=== PATIENT | male | born 2000 | race Hispanic/Latino ===

== ENCOUNTER 2024-12-04 16:58 | Emergency (ER) | payer MEDICAID ==
[~2024-12-04] VITALS: Ht 180.3 cm; Wt 67.6 kg
--- NOTE | 2024-12-04 17:12 | ERN ---
ED Note History of Present Illness Stated Complaint: ABD PAIN Chief Complaint: Abdominal Pain Time Seen by MD: 16:59 Dictation: PATIENT IS A 24-YEAR-OLD MALE HERE WITH COMPLAINTS OF EPIGASTRIC PAIN WITH BLOATING SINCE JUNE 2024. HE HAS HAD NO FEVER NO CHILLS NO NAUSEA VOMITING. STATES HE DOES NOT HAVE A PRIMARY CARE DOCTOR. HE STATES HE DID GO TO [facility] AND THEY TOLD HIM THAT IT WAS NOTHING AND GAVE HIM SOMETHING FOR PAIN FOR HIS STOMACH. HE STATES TODAY IS HIS 2ND FOLLOW UP TO A DOCTOR FOR RELIEF OF THE PAIN. STATES HIS LAST INTAKE WAS YESTERDAY AND HE ATE SOME GROUND BEEF SAID IT DID NOT CHANGE THE PAIN. Allergies: Coded Allergies: No Known Drug Allergies (Unverified Allergy, Unknown, 12/04/24) Past Medical History RN Note Reviewed/Agreed w/PFSH: Yes Review of System Dictation CONSTITUTIONAL: NEGATIVE EXCEPT FOR HPI HEAD/FACE: NEGATIVE EXCEPT FOR HPI EENT: NEGATIVE EXCEPT FOR HPI RESPIRATORY: NEGATIVE EXCEPT FOR HPI GASTROINTESTINAL/ABDOMINAL: NEGATIVE EXCEPT FOR HPI EPIGASTRIC PAIN WITH BLOATING GENITOURINARY: NEGATIVE EXCEPT FOR HPI MUSCULOSKELETAL: NEGATIVE EXCEPT FOR HPI INTEGUMENTARY: NEGATIVE EXCEPT FOR HPI NEUROLOGICAL/PSYCH: NEGATIVE EXCEPT FOR HPI HEMATOLOGIC/LYMPHATIC: NEGATIVE EXCEPT FOR HPI ALL SYSTEMS NEGATIVE, EXCEPT NOTED ABOVE. 13 POINT REVIEW OF SYSTEMS ASSESSED AND ALL NEGATIVE EXCEPT FOR ABOVE. Initial Vital Sign VS Vital Signs Date Time Temp Pulse Resp B/P (MAP) Pulse Ox O2 Delivery O2 Flow Rate FiO2 12/04/24 17:08 98.8 90 18 127/88 98 Room Air 0 Physical Exam Dictation VITAL SIGNS REVIEWED GENERAL APPEARANCE: ALERT, ORIENTED X 3, NO ACUTE DISTRESS, WELL DEVELOPED, NOURISHED. HEAD AND FACE: NON-TRAUMATIC. EYES: PERRL, PINK CONJUNCTIVAS, EYELID NO TRAUMA, ANTERIOR CHAMBER WITH ARCUS SENILIS. EARS: PINNAS INTACT AND NO SIGNS OF TRAUMA OR ERYTHEMA EAR CANALS CLEAR AND NO DISCHARGE TM NO ERYTHEMA NOSE: NO DISCHARGE, NO BLEEDING. OROPHARYNX: MOUTH NORMAL, TONGUE PINK, PHARYNX CLEAR,NO ERYTHEMA, TONSILS NO EXUDATES, NO ABSCESSES NOTED, MUCOUS MEMBRANE MOIST NECK: SUPPLE, NON-TENDER, NO THYROMEGALY, NO MASSES, NO JVD, NO BRUITS BREAST:DEFERRED CHEST:NO TENDERNESS, NO CREPITUS, NO PARADOXICAL MOVEMENT, NO RETRACTIONS LUNGS:CLEAR, WELL-VENTILATED, SYMMETRIC, NO RALES, NO WHEEZING, NO RHONCHI, NO STRIDOR, GOOD BREATH SOUNDS BILATERALLY HEART: REGULAR RATE, REGULAR RHYTHM, NO MURMUR, NO GALLOPS VASCULAR: NO PERIPHERAL EDEMA, ABDOMEN: SOFT, POSITIVE BOWEL SOUNDS, NONDISTENDED, NO GUARDING, MILD EPIGASTRIC TENDERNESS WITH PALPATION, NO REBOUND TENDERNESS NEGATIVE HERNANDEZ'S SIGN. RECTAL: DEFERRED GENITAL: DEFERRED NEUROLOGICAL: NORMAL SPEECH, MOTOR FUNCTION INTACT, SENSORY FUNCTION INTACT MUSCULOSKELETAL: NECK NONTENDER, FULL RANGE OF MOTION, BACK NONTENDER, FULL RANGE OF MOTION, EXTREMITIES: NONTENDER, FULL RANGE OF MOTION SKIN: COLOR PINK, DRY, NO TURGOR, NO RASH, NO LACERATIONS, NO ABRASIONS, NO CONTUSIONS. LYMPHATIC: DEFERRED Results (Laboratory/Radiology) Laboratory/Radiology Laboratory Tests Test 12/04/24 17:21 White Blood Count 6.5 K/uL (4.8-10.8) Red Blood Count 4.94 MIL/uL (4.50-6.20) Hemoglobin 15.6 g/dL (14.0-18.0) Hematocrit 44.4 % (42-54) Mean Corpuscular Volume 89.9 fL (79-99) Mean Corpuscular Hemoglobin 31.6 pg (27.0-33.0) Mean Corpuscular Hemoglobin Concent 35.1 g/dL (32.0-36.0) Red Cell Distribution Width 12.0 % (11.0-15.5) Platelet Count 326 K/uL (130-400) Mean Platelet Volume 9.3 fL (7.5-10.5) Immature Granulocyte % (Auto) 0.2 % (0-1) Neutrophils (%) (Auto) 78.1 % (40.0-77.0) H Lymphocytes (%) (Auto) 15.8 % (21.0-51.0) L Monocytes (%) (Auto) 5.4 % (3.0-13.0) Eosinophils (%) (Auto) 0.2 % (0.0-8.0) Basophils (%) (Auto) 0.3 % (0.0-5.0) Neutrophils # (Auto) 5.1 K/uL (1.8-7.7) Lymphocytes # (Auto) 1.0 K/uL (1.0-4.8) Monocytes # (Auto) 0.4 K/uL (0.1-1.0) Eosinophils # (Auto) 0.01 K/uL (0.00-0.70) Basophils # (Auto) 0.02 K/uL (0.00-0.20) Absolute Immature Granulocyte (auto 0.01 K/uL (0-1) Nucleated Red Blood Cells 0.0 % (0.0-0.19) Sodium Level 142 mmol/L (136-145) Potassium Level 3.9 mmol/L (3.5-5.1) Chloride Level 103 mmol/L (101-111) Carbon Dioxide Level 32 mmol/L (21-32) Blood Urea Nitrogen 10 mg/dL (7-18) Creatinine 0.8 mg/dL (0.5-1.3) Glomerular Filtration Rate Calc 125 mL/min (>90) Random Glucose 129 mg/dL (70-105) H Total Calcium 9.8 mg/dL (8.5-10.1) Lipase 27 U/L (16-77) 1845/RIGHT UPPER QUADRANT ULTRASOUND DEMONSTRATES SURGICALLY ABSENT GALLBLADDER FATTY LIVER Labs Reviewed?: Yes ED Course ED Course Orders Procedure Category Date Status Time Cbc With Differential LAB 12/04/24 Complete 17:09 Urinalysis Profile LAB 12/04/24 Logged 17:09 Lidocaine Hcl 2% PHA 12/04/24 Complete Viscous (Lidocaine Hcl 17:30 Mag/Alum/Simeth 30ml PHA 12/04/24 Complete (Maalox Plus 30ml) 17:30 Famotidine 20mg Tab PHA 12/04/24 Complete (Pepcid 20mg Tab) 17:30 Dicyclomine Hcl PHA 12/04/24 Complete (Bentyl 10mg/5ml 17:30 Lipase LAB 12/04/24 Complete 17:09 Basic Metabolic Panel LAB 12/04/24 Complete 17:09 Us Abdominal Ruq\Ltd US 12/04/24 Taken 18:16 Current Medications Medications (Trade) Dose Ordered Sig/Cain Route PRN Reason Start Time Stop Time Status Last Admin Dose Admin Al Hydroxide/Mg Hydroxide (MAALox PLUS 30ML) 30 ml ONCE ONCE PO 12/04/24 17:30 12/04/24 17:31 DC Dicyclomine HCl (Bentyl 10mg/5ml Syrup) 10 mg ONCE ONCE PO 12/04/24 17:30 12/04/24 17:31 DC Famotidine (Pepcid 20mg Tab) 20 mg ONCE ONCE PO 12/04/24 17:30 12/04/24 17:31 DC Lidocaine HCl (Lidocaine HCl 2% Viscous) 10 ml ONCE ONCE PO 12/04/24 17:30 12/04/24 17:31 DC Vital Signs Date Time Temp Pulse Resp B/P (MAP) Pulse Ox O2 Delivery O2 Flow Rate FiO2 12/04/24 17:08 98.8 90 18 127/88 98 Room Air 0 Medical Decision Making MDM MDM: DIFFERENTIAL DIAGNOSIS: GASTRITIS VERSUS GASTROENTERITIS/PANCREATITIS/BILIARY COLIC/ELECTROLYTE IMBALANCE/DEHYDRATION RATIONALE: TESTS CONSIDERED AND ORDERED SECONDARY TO SHARED DECISION MAKING INCLUDE: LABS/ULTRASOUND PREVIOUS OUTSIDE RECORDS REVIEWED: OLD ER VISITS. RISK OF COMPLICATION AND/OR MORBIDITY OR MORTALITY OF PATIENT MANAGEMENT: NONE MEDICATIONS-PER MEDICATION RECONCILIATION NEED FOR HOSPITALIZATION: PATIENT DOES NOT MEET CRITERIA FOR HOSPITALIZATION. NO NEED FOR EMERGENCY MAJOR/MINOR SURGERY: NO THERE ARE NO SOCIAL CONCERNS WITH THIS PATIENT. PRESCRIPTION DRUG MANAGEMENT CARAFATE/OMEPRAZOLE/BLAND DIET/REFERRAL TO PRESCRIPTIONS WILL INCLUDE SYMPTOMATIC CARE PATIENT'S PRIOR EXTERNAL MEDICAL RECORDS FROM OTHER ER VISITS WERE REVIEWED BY ME INDICATED. PRIOR TESTING AND RESULTS FROM PREVIOUS VISITS WERE REVIEWED. PRIOR TESTS WERE TAKEN INTO ACCOUNT WITH MEDICAL DECISION MAKING AND RESOURCE UTILIZATION, INDEPENDENT HISTORIAN/HISTORIANS WERE USED TO OBTAIN COMPLETE MEDICAL HISTORY. I INDEPENDENTLY INTERPRETED THE TEST THAT WERE PERFORMED, RESULTS WERE REVIEWED BY ME AND CONSIDERED FINDINGS ON RADIOLOGY IF ORDERED. MEDICAL MANAGEMENT AND EXAMINATION INTERPRETATION DISCUSSIONS WERE HAD BY ME WITH OTHER QUALIFIED HEALTHCARE PROFESSIONALS INDICATED FOR THE PATIENT'S CARE. DX & DISP Disposition: Discharge Departure Impression: Primary Impression: Acute gastritis Additional Impression: Hyperglycemia Condition: Stable Scripts Sucralfate (Carafate) 1 Gram Tablet 1 GM PO ACHS for 10 Days, #40 TAB Prov: LASHAE STEWARD BRAZING MACHINE OPERATOR [employer] 12/04/24 Omeprazole (Omeprazole) 40 Mg Capsule. 1 CAP PO DAILY for 30 Days, #30 CAP 0 Refills Prov: LASHAE STEWARD BRAZING MACHINE OPERATOR [employer] 12/04/24 Additional Instructions: FOLLOW-UP WITH PRIMARY CARE PROVIDER IN 1 TO 2 DAYS. TAKE MEDICATIONS DIRECTED HERE IN THE EMERGENCY ROOM. OKAY TO CONTINUE HOME MEDICATIONS UNLESS OTHERWISE DISCUSSED DURING YOUR VISIT IN THE EMERGENCY ROOM TODAY. RETURN TO YOUR NEAREST EMERGENCY ROOM IF SYMPTOMS WORSEN OR IF THERE IS NO IMPROVEMENT. CALL 911 IF YOU NEED IMMEDIATE ASSISTANCE. TAKE TYLENOL OR MOTRIN [id number] NEEDED AND IF NO CONTRAINDICATIONS ARE PRESENT. INCREASE ORAL HYDRATION. A WOUND CULTURE OR URINE CULTURE WAS ORDERED HERE IN THE EMERGENCY ROOM DEPARTMENT PLEASE FOLLOW-UP WITH PRIMARY CARE PROVIDER AND ADVISE THEM TO GET REPEAT PORTS FROM OUR FACILITY. IF YOU HAD ANY VIOLA WRAP/SPLINTS THAT WERE APPLIED HERE, PLEASE DO NOT REMOVE THEM UNTIL YOU SEE YOUR PRIMARY CARE OR SPECIALTY. FOLLOW A BLAND DIET WITH WATER FOR FLUIDS ONLY. NO ALCOHOL, NO TOBACCO, NO ICE TEA, NO SODA POP, NO BUBBLY DRINKS, NO CITRUS FRUIT JUICE, NO SPICY FOODS UNTIL CLEARED BY LOAD DISPATCHER LOCAL, CALL FOR AN APPOINTMENT TOMORROW. TAKE CARAFATE AND OMEPRAZOLE DIRECTED. ALSO, STRONGLY SUGGEST FOLLOWING UP WITH A PRIMARY CARE DOCTOR FROM THE LIST PROVIDED YOU BECAUSE A YOUR HIGH BLOOD SUGAR IN THE EMERGENCY ROOM. Referrals: GANESH HAND MD Time of Disposition: 18:48 I have reviewed the case, and I agree with, Diagnosis and Plan LASHAE STEWARD NP Dec 04, 2024 17:12
[2024-12-04 17:28] LABS: IMMATURE GRANULOCYTE ABSOLUTE 0.01 K/uL (0-1); NUCLEATED RED BLOOD CELLS 0.0 % (0.0-0.19); PLATELET COUNT (AUTO) 326 K/uL (130-400); RED BLOOD CELL COUNT(AUTO) 4.94 MIL/uL (4.50-6.20); RED CELL DISTRIBUTION WIDTH 12.0 % (11.0-15.5); WHITE BLOOD COUNT (AUTO) 6.5 K/uL (4.8-10.8)
[2024-12-04 17:37] LABS: CREATININE 0.8 mg/dL (0.5-1.3); GLOMERULAR FILTR. RATE CALC 125.0 mL/min (>90); GLUCOSE,RANDOM 129.0 mg/dL (70-105); SODIUM SERUM 142.0 mmol/L (136-145); UREA NITROGEN, BLOOD 10.0 mg/dL (7-18)
[2024-12-04] MEDS ORDERED: OMEP40CA21 PO (18:50)
[2024-12-04] MEDS ORDERED: SUCR1TAB28 PO (18:50)
[2024-12-04 19:16] VITALS: BP 125/85; PULSE 85; RESP 16; TEMP 98; O2SAT 98
[2024-12-04 19:25] LABS: ADD UA MICROSCOPIC YES; APPEARANCE,URINE CLEAR (CLEAR); GLUCOSE, URINE (UA) NEGATIVE (NEGATIVE); LEUKOCYTE ESTERASE ,URINE NEGATIVE Leu/uL (NEGATIVE); NITRATE,URINE NEGATIVE (NEGATIVE); OCCULT BLOOD,URINE NEGATIVE (NEGATIVE)
[2024-12-04] MEDS: LIDOCAINE HCL 2% VISCOUS 15 ML UDCUP PO ONE (19:25)
[2024-12-04] MEDS: FAMOTIDINE 20MG TAB PO ONE (19:25)
[2024-12-04] MEDS: DICYCLOMINE HCL 10 MG/5 ML ML PO ONE (19:25)
[2024-12-04] MEDS: MAG/ALUM/SIMETH 30 ML UDCUP PO ONE (19:25)
--- NOTE | 2024-12-04 19:28 | HMCIMG ---
EXAMINATION: US Abdomen, Right Upper Quadrant. CLINICAL HISTORY: Patient presents with chronic right upper quadrant pain. COMPARISON: None provided. TECHNIQUE: Right upper quadrant sonography performed with image documentation. FINDINGS: LIVER: The liver measures 14 cm and is within normal limits in echogenicity. No mass. PORTAL VEIN: The main portal vein is normal in caliber and demonstrates hepatopetal flow at 14 cm/sec. GALLBLADDER: The gallbladder is surgically absent. COMMON BILE DUCT: The common bile duct measures 4 mm. PANCREAS: The visualized pancreas is within normal limits. RIGHT KIDNEY: The right kidney measures 11 x 5 x 4.7 cm with normal renal contours. No renal mass or calculus. No hydronephrosis. IMPRESSION: Surgical absence of the gallbladder. No acute abnormality. /[place]
== END 2024-12-04 20:06 | disposition home or self-care (01) ==
LOC: EDH 16:58
DX: K29.00 Acute gastritis without bleeding (principal); R73.9 Hyperglycemia, unspecified; Z90.49 Acquired absence of other specified parts of digestive tract
CPT/HCPCS: 36415; 76705; 80048; 81001; 83690; 85025; 99284